=== PATIENT | male | born 1995 | race Caucasian/White ===

== ENCOUNTER 2018-09-02 06:47 | Emergency (ER) | payer SELFPAY ==
[~2018-09-02] VITALS: Ht 172.7 cm; Wt 72.0 kg
[2018-09-02 06:49] VITALS: BP 137/73; PULSE 82; RESP 18; Ht 172.7 cm; Wt 72.0 kg
--- NOTE | 2018-09-02 07:37 | ERD ---
ER Documentation Chief Complaint Chief Complaint RIGHT KNEE PAIN, SWELLING S/P PLAYED BASKETBALL YESTERDAY. NO INJURY. HPI 23-year-old male, presents to the emergency department, complaining of right knee pain and edema after an injury that occurred yesterday while the patient was playing basketball according to the patient, he sustained a forced rotation while the foot was steady. He denies distal weakness, numbness or tingling. Pain is dull, constant, 7/10. ROS All systems reviewed and are negative except as per history of present illness. Medications Home Meds Active Scripts Hydrocodone/Acetaminophen ([place] 5-325 Tablet) 1 Each Tablet, 1 TAB PO BID PRN for PAIN, #10 TAB Prov:MOISE KAYE MD 09/02/18 Ibuprofen* (Motrin*) 600 Mg Tab, 600 MG PO Q8, #15 TAB Prov:MOISE KAYE MD 09/02/18 Allergies Allergies: Coded Allergies: No Known Allergy (Unverified , 09/02/18) PMhx/Soc Medical and Surgical Hx: pt denies Medical Hx, pt denies Surgical Hx Hx Alcohol Use: No Hx Substance Use: No Hx Tobacco Use: No Smoking Status: Never smoker FmHx Family History: No diabetes, No coronary disease Physical Exam Vitals Vital Signs Date Temp Pulse Resp B/P (MAP) Pulse Ox O2 O2 Flow FiO2 Time Delivery Rate 09/02/18 98.6 82 18 137/73 96 06:49 (94) Physical Exam Const: No acute distress Head: Atraumatic Eyes: Normal Conjunctiva ENT: Normal External Ears, Nose and Mouth. Neck: Full range of motion. No meningismus. Resp: Clear to auscultation bilaterally Cardio: Regular rate and rhythm, no murmurs Abd: Soft, non tender, non distended. Normal bowel sounds Skin: No petechiae or rashes Back: No midline or flank tenderness Ext: Right knee: Normal inspection, peripatellar crepitus, decreased range of motion due to pain. Distal neurovascular exam intact. Neur: Awake and alert Psych: Normal Mood and Affect Results 24 hrs Current Medications Medications Dose Sig/Krystina Start Time Status Last (Trade) Ordered Route PRN Stop Time Admin Dose Reason Admin Ibuprofen 600 mg ONCE ONCE 09/02/18 DC 09/02/18 (Motrin) PO 08:00 07:48 09/02/18 08:01 DIAGNOSTIC IMAGING REPORT Patient: BRIAN GAO : 1995 Age: 23 Sex: M MR #: [id number] DOS: 09/02/18 0000 Ordering MD: MOISE KAYE MD Location: [facility] Room/Bed: PROCEDURE: XR Knee. CLINICAL INDICATION: Right knee pain. TECHNIQUE: AP, lateral, and oblique views of the right knee are available for review. COMPARISON: None available FINDINGS: The osseous structures, articular spaces, and surrounding soft tissues of the right knee are all unremarkable. No acute fracture or dislocation is seen. No radiopaque foreign body is identified. Alignment is anatomic. There is no significant joint effusion. IMPRESSION: 1. Unremarkable right knee x-ray series. 2. No acute fracture or dislocation is seen. RPTAT: GG .Tomi Castillo MD, MD Date Time Electronically viewed and signed by .Tomi Castillo MD, MD on 09/02/2018 08:17 .L/ CC: MOISE KAYE MD [id number] Procedures/MDM Acute right knee pain: no red flags. Differential diagnosis include but not limited to: Knee contusion, meniscus injury, tendon/ligament injury, arthritis; low suspicion for fracture, dislocation, septic arthritis. Neurovascular exam grossly intact. no clinical findings suggestive of acute infectious process, no acute deformity, no edema, no rashes. Pertinent Data: X-rays: No fracture or dislocation Physical examination and clinical presentation consistent most likely with acute knee contusion. During the ED course the patient received treatment with ibuprofen p.o. presenting overall improvement of the symptoms. Results and clinical impression discussed with the patient who agrees with management. The patient is stable to be treated outpatient and will be discharged home with recommendations for ice, rest and partial immobilization. NSAIDs 3 times daily for 5 days and close monitoring. The patient was instructed to follow up with the primary care provider in the next 48h. If symptoms persist, worsen or new symptoms develop, then patient should return to the ED immediately. Instructions explained and given to patient with acknowledgment and demonstrated understanding. Disclaimer: Inadvertent spelling and grammatical errors are likely due to EHR /dictation software use and do not reflect on the overall quality of patient care. Also, please note that the electronic time recorded on this note does not necessarily reflect the actual time of the patient encounter. Departure Diagnosis: Primary Impression: Pain of right knee after injury Condition: Stable Additional Instructions: Thank you very much for allowing us to participate in your care. Your health and safety is our top priority at [facility]. Call your primary care doctor TOMORROW for an appointment during the next 2-4 days and bring all the information and medications prescribed. Have prescriptions filled and follow precisely the directions on the label. If the symptoms get worse and your provider is unavailable, return to the Emergency Department immediately. MOISE KAYE MD Sep 02, 2018 07:37
[2018-09-02] MEDS ORDERED: IBUPROFEN 600 MG TAB PO ONE (08:00)
[2018-09-02] MEDS ORDERED: IBUP-1542 PO (08:26)
[2018-09-02] MEDS ORDERED: HYDR-4011 PO (08:27)
== END 2018-09-02 09:00 | disposition home or self-care (01) ==
LOC: FTE 06:47
DX: S89.91XA Unspecified injury of right lower leg, initial encounter (principal); X58.XXXA Exposure to other specified factors, initial encounter; Y92.9 Unspecified place or not applicable
CPT/HCPCS: 73562